=== PATIENT | male | born 1960 | race Caucasian/White ===

== ENCOUNTER 2017-05-16 08:14 | Day surgery (SDC) | payer MEDICARE, OTHER ==
[~2017-05-16] VITALS: Ht 172.7 cm; Wt 94.0 kg
[2017-05-16] VITALS (17 sets, daily range): BP systolic 98–118; BP diastolic 47–84; PULSE 74–88; RESP 14–25; Ht 172.7 cm; Wt 94.0 kg
[~2017-05-16 08:14] MED LIST: ALLO300T2 PO; ASPI-664 PO; CARV6.2579 PO; CYAN500T46 PO; ESOM40CA PO; FER325 PO; FURO20TA3 PO; GEMF600T60 PO; GLIM2TAB PO; LINA5TAB PO; MTF1000T PO; MULT-860 PO; NIAC500T3 PO; OMEG1CAP90 PO; RAMI10CA48 PO; SIMV40TA2 PO; SOD CHLORIDE 0.9% 1,000 ML IV SCH
--- NOTE | 2017-05-16 09:16 | RADRPT ---
PROCEDURE: XR Chest. CLINICAL INDICATION: Chest pain , preop TECHNIQUE: Single frontal view of the chest was obtained COMPARISON: None FINDINGS: The heart is enlarged. The thoracic aorta is calcified. There is mild left lower lobe linear atelectasis. The lungs are otherwise clear. There is no pleural effusion or pneumothorax. RPTAT: AA IMPRESSION: Mild cardiomegaly. Calcified aorta consistent with atherosclerotic disease. Mild left lower lobe linear atelectasis. .Jerzy Rolon MD, MD Date Time Electronically viewed and signed by .Jerzy Rolon MD, on 05/16/2017 09:16 .S/
[2017-05-16 09:38] LABS: BASOPHIL # 0.1 10^3/ul (0.0-0.1); EOSINOPHILS # 0.2 10^3/ul (0.0-0.5); EOSINOPHILS % 1.8 % (0.0-7.0); HEMATOCRIT 36.2 % (42.0-52.0); HEMOGLOBIN 11.6 g/dl (14.0-18.0); LYMPHOCYTES # 2.2 10^3/ul (0.8-2.9); LYMPHOCYTES % 27.6 % (15.0-51.0); MEAN CORPUSCULAR HEMOGLOBIN 28.8 pg (29.0-33.0); MEAN CORPUSCULAR VOLUME 89.8 fl (82.0-101.0); MEAN PLATELET VOLUME 10.9 fl (7.4-10.4); MONOCYTE # 0.7 10^3/ul (0.3-0.9); MONOCYTES % 8.5 % (0.0-11.0); NEUTROPHIL # 4.9 10^3/ul (1.6-7.5); NEUTROPHILS % 60.7 % (39.0-77.0); PLATELET COUNT 264 10^3/UL (140-415); RED BLOOD COUNT 4.03 10^6/ul (4.70-6.10); RED CELL DISTRIBUTION WIDTH 13.4 % (11.5-14.5); WHITE BLOOD COUNT 8.1 10^3/ul (4.8-10.8)
[2017-05-16 09:51] LABS: CALCIUM 9.6 mg/dl (8.4-10.2); CREATININE 0.98 mg/dl (0.61-1.24); POTASSIUM 4.4 mmol/L (3.5-5.1)
[2017-05-16 09:56] LABS: INR 0.96; PROTIME 12.8 Sec (12.2-14.2)
[2017-05-16] MEDS ORDERED: ASPI81TA3 PO (09:56)
[2017-05-16 09:57] LABS: PARTIAL THROMBOPLASTIN TIME 29.7 Sec (25.0-35.0)
[2017-05-16] MEDS ORDERED: LINA5TAB PO (09:58)
[2017-05-16] MEDS ORDERED: ISOS30TA5 PO (10:00)
[2017-05-16] MEDS ORDERED: BENA10TA48 PO (10:00)
[2017-05-16] MEDS ORDERED: PANT40TA4 PO (10:03)
[2017-05-16] MEDS ORDERED: NIAC500T81 PO (10:06)
[2017-05-16] MEDS ORDERED: OMEG10006 PO (10:07)
[2017-05-16] MEDS ORDERED: CYAN500T46 PO (10:07)
[2017-05-16] MEDS ORDERED: NITROGLYCERIN (IC) 100 MCG/ML INJ ONE (10:27)
[2017-05-16] MEDS ORDERED: LIDOCAINE 1% (MDV) 20 ML INJ ONE (10:27)
[2017-05-16] MEDS ORDERED: IODIXANOL LOCM 100 ML BTL ONE ×3 (10:27→12:07)
[2017-05-16] MEDS ORDERED: HEPARIN 1000 UNITS/ML 10 ML INJ ONE (10:27)
[2017-05-16] MEDS ORDERED: VERAPAMIL 5 MG INJ ONE (10:27)
[2017-05-16] MEDS ORDERED: MIDAZOLAM 1 MG/ML 2 ML INJ ONE (10:28)
[2017-05-16] MEDS ORDERED: FENTAnyl 50 MCG/ML VIAL ONE (10:28)
--- NOTE | 2017-05-16 12:36 | OPR ---
Date/Time of Note Date/Time of Note DATE: 05/16/17 TIME: 12:25 Operative Report Procedure Date: May 16, 2017 Preoperative Diagnosis Shortness of breath Abnormal nuclear perfusion study Postoperative Diagnosis Coronary artery disease Patent four-vessel bypasses Operation Performed Left heart catheterization Right and left coronary angiogram and bypass grafts Interpretation and supervision of right and left coronary angiogram and bypass grafts Left ventricular pressure measurements Ascending aortogram Conscious sedation Left radial artery approach Anesthesia: other (Conscious sedation) Estimated Blood Loss: minimal Complications: None Pt Condition Post Procedure: stable Operative\Procedure Findings Hemodynamics LV pressure 118/-7 with EDP of 17 Aortic pressure 107/68 Coronary findings Left main is a long vessel of medium caliber with no significant disease. Circumflex is a small to medium caliber vessel with no significant disease Ramus intermedius seen via saphenous vein graft injection distal 10% diffuse stenosis LAD with ostial 100% occlusion, the rest of the vessel seen via SANCHEZ injection is a medium caliber vessel mid 20% diffuse stenosis RCA is a large caliber vessel and ectatic with a mid 80% stenosis and then 100% occlusion. Mid and distal vessel seen via saphenous vein graft injections with mid vessel 70% stenosis and PDA and PLB with no significant disease SANCHEZ to LAD is patent with no significant disease but tortuous SVG to ramus is patent with no significant disease but tortuous SVG to mid RCA is patent with no significant disease but tortuous. It appears the anastomosis of this portion is into a moderately diseased segment. SVG to the PDA is patent with no significant disease which is flowing to the PDA , PLB and back flowing in the RCA Procedure Description Patient was brought to the [facility] after informed consent. Left radial access was obtained and a 5/6 [place] sheath was placed in left radial artery. 5 [place] JR4 catheter was used to engage the SANCHEZ to LAD and angiogram was performed. We next entered the left ventricle and pressure measurements were obtained as well as pullback. We next engage the RCA and antrum was performed. We next engage the saphenous vein graft to the mid RCA and antrum was performed. We were unable to reach other bypass grafts. We switched for a 5 [place] JL 3.5 diagnostic catheter in attempts of engage in the left main but unsuccessful. We next switched to a 6 [place] JL4 diagnostic catheter and angiogram of the left system was performed. We next used a 6 [place] pigtail catheter and did an ascending aortogram to look for any bypass grafts. We did see 2 grafts going towards the region of the RCA and one graft going towards the ramus. We initially used an LCB catheter and attempts of engaging the saphenous vein graft to the ramus but unsuccessful. We next used a multipurpose catheter and engaged the saphenous vein graft to the ramus and antrum was performed. We next engaged the saphenous vein graft going to the PDA. Antrum was performed. Op report was reviewed from coronary artery bypass grafting which did mention that initially, saphenous vein graft was anastomosed to the mid RCA but the flow was not appropriate. Afterwards, a saphenous vein graft was anastomosed to the PDA with appropriate flow. Given patent grafts, no need for intervention at the current time. All catheters and wires removed. There was no immediate complications. Recommendations Aggressive medical management. Sav Sheridan DO May 16, 2017 12:36
[2017-05-16] MEDS ORDERED: SOD CHLORIDE 0.9% 1,000 ML IV SCH (12:37)
--- NOTE | 2017-05-16 12:40 | PDOCDIS ---
Discharge Instructions CONDITION Patient Condition: Good HOME CARE INSTRUCTIONS: Diet Instructions: Low Fat /Cholesterol ACTIVITY: Activity Restrictions: Slowly Increase Activity Avoid heavy lifting (Not more than 5 pounds with left hand for 3 days) [address] (1 day) OTHER ORDERS: Other Orders: Hold metformin until 05/19/2017 Sav Sheridan DO May 16, 2017 12:40
[2017-05-16] MEDS ORDERED: HOLD all METFORMIN and METFORMIN CONTAINING medications for 48 hours post procedure. Chec XX SCH (13:00)
[2017-05-16] MEDS ORDERED: ACETAMINOPHEN 325 MG TAB PO PRN (13:00)
[2017-05-16] MEDS ORDERED: ONDANSETRON 4 MG INJ IV PRN (13:00)
[2017-05-16] MEDS ORDERED: AL HYDROX/MG HYDROX/SIMETH 30 ML CUP PO PRN (13:00)
--- NOTE | 2017-05-16 14:31 | RADRPT ---
Vent Rate: 74 bpm RR Interval: 0 msec MI Interval: 178 msec QRS Duration: 122 msec QT Interval: 396 msec QTC Interval: 439 msec P-R-T [place]: 27 - -9 - -14 degrees Normal sinus rhythm Inferior infarct , age undetermined Anterolateral infarct , age undetermined Abnormal ECG Electronically Signed By: Babar Maza [id number]
== END 2017-05-16 17:05 | disposition home or self-care (01) ==
LOC: SDS 08:14
PROVIDERS: ATTEND Internal Medicine Cardiovascular Disease
DX: I25.10 Atherosclerotic heart disease of native coronary artery without angina pectoris (principal); Z95.1 Presence of aortocoronary bypass graft
CPT/HCPCS: 71010; 80048; 82962; 85025; 85610; 85730; 93005; 93459; C1769; C1887; J1644; J2250; J3010; Q9967

== ENCOUNTER → 2018-01-28 | Outpatient (CLI) | END | disposition home or self-care (01) ==

== ENCOUNTER → 2018-04-04 | Outpatient (CLI) | END | disposition home or self-care (01) ==

== ENCOUNTER 2018-04-11 18:19 | Observation (INO) | END 2018-04-13 17:25 | disposition home or self-care (01) ==